=== PATIENT | male | born 1955 | race Hispanic/Latino ===

== ENCOUNTER 2017-05-09 15:00 | Inpatient (IN) | payer OTHER, MEDICARE ==
[~2017-05-09] VITALS: Ht 160 cm; Wt 134.4 kg
[2017-05-19] MEDS ORDERED: INSLAN SQ ×2 (16:42)
[2017-05-19] MEDS ORDERED: SITA100T12 PO (16:42)
[2017-05-19] MEDS ORDERED: GLYB-228 PO (16:42)
[2017-05-19] MEDS ORDERED: LEVO50TA11 PO (16:42)
[2017-05-19] MEDS ORDERED: MIRA50TA PO (16:42)
[2017-05-19] MEDS ORDERED: TAMS-1 PO (16:42)
[2017-05-19] MEDS ORDERED: AMLO-128 PO (16:42)
[2017-05-19 16:56] VITALS: BP 169/80
[2017-05-19 17:16] LABS: APPEARANCE,URINE Clear (CLEAR); BILIRUBIN,URINE Negative (NEGATIVE); COLOR,URINE Yellow (YELLOW); GLUCOSE, URINE (UA) 500 mg/dL (NEGATIVE); KETONES,URINE Negative (NEGATIVE); LEUKOCYTE ESTERASE ,URINE Negative (NEGATIVE); NITRATE,URINE Negative (NEGATIVE); OCCULT BLOOD,URINE Negative (NEGATIVE); PROTEIN,URINE POS 1+ (NEGATIVE)
[2017-05-19 17:22] LABS: INR 1.01 (0.85-1.15); PARTIAL THROMBOPLASTIN TIME 26.5 SEC (26.3-35.5); PROTHROMBIN TIME 10.6 SEC (9.6-11.6)
[2017-05-19 17:33] LABS: BACTERIA,URINE None Seen /HPF (None Seen); RBC,URINE None Seen /HPF (0-1); WBC,URINE None Seen /HPF (0-1)
[2017-05-22] VITALS (22 sets, daily range): BP systolic 120–163; BP diastolic 59–87
[2017-05-22] MEDS ORDERED: CEFAZOLIN 3GM /D5W 100ML 100 ML IV SCH ×2 (05:30→15:45)
[2017-05-22] MEDS ORDERED: GLYCOPYRROLATE 0.2 MG/ML 5 ML VIAL ONE ×2 (06:52→10:42)
[2017-05-22] MEDS ORDERED: LIDOCAINE PF 2% 5ML ABBOJECT ONE (06:52)
[2017-05-22] MEDS ORDERED: DEXAMETHASONE SOD PHOSPHATE 10MG/ML 1ML VIAL ONE ×2 (06:52→10:42)
[2017-05-22] MEDS ORDERED: MIDAZOLAM HCL 1 MG/ML 2ML VIAL ONE (06:53)
[2017-05-22] MEDS ORDERED: PROPOFOL 10 MG/ML 20ML VIAL IV ONE ×2 (06:53→08:33)
[2017-05-22] MEDS ORDERED: FENTANYL CITRATE PF 50 MCG/1 ML 2ML VIAL ONE ×3 (06:53→10:26)
[2017-05-22] MEDS ORDERED: SODIUM CHLORIDE 0.9% 1000ML 1,000 ML IV ONE (06:56)
[2017-05-22] MEDS ORDERED: TRANEXAMIC ACID 1000MG/10ML IV ONE ×2 (07:01→09:30)
[2017-05-22] MEDS ORDERED: CEFAZOLIN SODIUM 1 GM VIAL ONE (07:01)
[2017-05-22] MEDS ORDERED: ROPIVACAINE 0.5% 5MG/ML 30ML IJ ONE (07:02)
[2017-05-22 07:04] LABS: HEMATOCRIT 43.1 % (42-54); MEAN CORPUSCULAR HEMOGLOBIN 29.2 pg (27.0-33.0); MEAN CORPUSCULAR HGB CONC 34.1 g/dL (32.0-36.0); MEAN CORPUSCULAR VOLUME 85.4 fL (79-99); PLATELET COUNT (AUTO) 244 K/uL (130-400); RED BLOOD CELL COUNT(AUTO) 5.04 MIL/uL (4.50-6.20); RED CELL DISTRIBUTION WIDTH 14.2 % (11.0-15.5); WHITE BLOOD COUNT (AUTO) 6.4 K/uL (4.8-10.8)
[2017-05-22] MEDS ORDERED: BUPIVACAINE/EPI/PF 0.25% 30ML VIAL IJ ONE (07:11)
[2017-05-22 07:21] LABS: CREATININE 0.9 mg/dL (0.5-1.5); POTASSIUM 4.4 mmol/L (3.5-5.1)
[2017-05-22] MEDS: CEFAZOLIN SODIUM 1 GM VIAL ONE ×2 (07:29→09:07)
[2017-05-22] MEDS ORDERED: EPHEDRINE SULFATE 50 MG/ML AMPULE ONE (09:00)
[2017-05-22] MEDS ORDERED: ROCURONIUM BROMIDE 10MG/1ML 5ML VL ONE ×2 (09:07)
[2017-05-22] MEDS ORDERED: ONDANSETRON HCL MDV 20ML 2 MG/ML VIAL ONE (09:25)
[2017-05-22] MEDS ORDERED: SUCCINYLCHOLINE CHLORIDE 20 MG/ML 10 ML VIAL ONE (09:25)
[2017-05-22] MEDS ORDERED: NEOSTIGMINE METHYLSULFATE 1MG/ML IV ONE (10:42)
[2017-05-22] MEDS ORDERED: LIDOCAINE HCL 4% LTA SOL 4 ML VIAL ONE (10:42)
[2017-05-22] MEDS ORDERED: TRAMADOL HCL 50 MG TABLET PO PRN (10:45)
[2017-05-22] MEDS ORDERED: KETOROLAC TROMETHAMINE 15MG/ML IV PRN (10:45)
[2017-05-22] MEDS ORDERED: POTASSIUM CHLORIDE 10% ELIXIR 20 MEQ/15 ML UDCUP PO PRN (10:45)
[2017-05-22] MEDS ORDERED: CALCIUM CARBONATE 500 MG TABLET PO PRN (10:45)
[2017-05-22] MEDS ORDERED: POTASSIUM CHLORIDE 20MEQ/100ML 100 ML IV PRN (10:45)
[2017-05-22] MEDS ORDERED: LIDOCAINE HCL-MPF 1% 2ML VIAL IVP PRN (10:45)
[2017-05-22] MEDS: ACETAMINOPHEN 325 MG TAB PO SCH ×3 (10:45→23:02)
[2017-05-22] MEDS ORDERED: POTASSIUM CHLORIDE 20 MEQ ERTAB PO PRN (10:45)
[2017-05-22] MEDS ORDERED: TEMAZEPAM 15 MG CAPSULE PO PRN (10:45)
[2017-05-22] MEDS ORDERED: PROMETHAZINE HCL 25 MG/ML 1ML AMPULE IM PRN (10:45)
[2017-05-22] MEDS ORDERED: DIPHENHYDRAMINE HCL 25 MG CAPSULE PO PRN (10:45)
[2017-05-22] MEDS ORDERED: DiphenhydrAMINE HCL 50 MG/ML VIAL IVP PRN (10:45)
[2017-05-22] MEDS ORDERED: FERROUS FUMARATE 324 MG TABLET PO PRN (10:45)
[2017-05-22] MEDS ORDERED: MEPERIDINE-PF 25 MG/ML SYG ONE ×2 (11:14→11:28)
[2017-05-22] MEDS: INSULIN HUMULIN R 100 UNIT/ML 3ML SQ SCH ×3 (11:30→21:00)
[2017-05-22] MEDS: PSYLLIUM SEED 1 EACH PACKET PO SCH (12:00)
[2017-05-22] MEDS: SODIUM CHLORIDE 0.9% 1000ML 1,000 ML IV SCH ×2 (12:10→23:02)
[2017-05-22] MEDS: OXYCODONE HCL 5 MG TAB PO PRN ×2 (13:20→16:14)
[2017-05-22] MEDS: WATER FOR INJECTION,STERILE 20 ML VIAL IJ SCH ×2 (15:45→23:45)
[2017-05-22] MEDS ORDERED: CEFAZOLIN SODIUM 1 GM VIAL IVP SCH (15:45)
[2017-05-22] MEDS ORDERED: COMPOUND IV REFRIGERATED 1 EACH IVSOLN MISC PRN (16:30)
[2017-05-22] MEDS: CEFAZOLIN SODIUM 3 GM in SODIUM CHLORIDE 0.9% 100 ML IVP SCH ×2 (17:47→23:55)
[2017-05-22] MEDS: CELECOXIB 200 MG CAP PO SCH (20:18)
[2017-05-22] MEDS: PREGABALIN 25 MG CAP PO SCH (20:18)
[2017-05-22] MEDS: ASPIRIN 325 MG TABLET PO SCH (20:18)
[2017-05-22] MEDS: FAMOTIDINE 20MG TAB 20 MG TAB PO SCH (20:18)
[2017-05-22] MEDS: GLYBURIDE/METFORMIN HCL 5/500MG TABLET PO SCH (20:18)
[2017-05-22] MEDS ORDERED: INSULIN GLARGINE 100 UNITS/ML 10 ML VIAL SQ SCH (21:00)
[2017-05-23] VITALS: BP 142/78
[2017-05-23 04:00] VITALS: BP 125/59
[2017-05-23 05:29] LABS: HEMATOCRIT 36.8 % (42-54); MEAN CORPUSCULAR HEMOGLOBIN 29.6 pg (27.0-33.0); MEAN CORPUSCULAR HGB CONC 34.2 g/dL (32.0-36.0); MEAN CORPUSCULAR VOLUME 86.6 fL (79-99); PLATELET COUNT (AUTO) 238 K/uL (130-400); RED BLOOD CELL COUNT(AUTO) 4.25 MIL/uL (4.50-6.20); WHITE BLOOD COUNT (AUTO) 9.9 K/uL (4.8-10.8)
[2017-05-23 05:46] LABS: CREATININE 1.1 mg/dL (0.5-1.5); POTASSIUM 4.3 mmol/L (3.5-5.1)
[2017-05-23] MEDS: ACETAMINOPHEN 325 MG TAB PO SCH ×3 (05:50→17:11)
[2017-05-23] MEDS ORDERED: LEVOTHYROXINE 50 MCG TABLET PO SCH (06:30)
[2017-05-23] MEDS: INSULIN HUMULIN R 100 UNIT/ML 3ML SQ SCH ×3 (06:33→16:30)
[2017-05-23] MEDS: SODIUM CHLORIDE 0.9% 1000ML 1,000 ML IV SCH (06:44)
[2017-05-23] MEDS: WATER FOR INJECTION,STERILE 20 ML VIAL IJ SCH ×2 (07:45→15:45)
[2017-05-23 07:49] VITALS: BP 146/71
[2017-05-23] MEDS ORDERED: TAMSULOSIN HCL 0.4 MG CAP.ER.24H PO SCH ×2 (09:00)
[2017-05-23] MEDS ORDERED: **HM**Mirabegron (Myrbetriq) 50 MG PO SCH (09:00)
[2017-05-23] MEDS ORDERED: POLYETHYLENE GLYCOL 3350 17 GM POWD.PACK PO SCH (09:00)
[2017-05-23] MEDS ORDERED: AMLODIPINE BESYLATE 5 MG TAB PO SCH (09:00)
[2017-05-23] MEDS ORDERED: BENAZEPRIL HCL 10 MG TABLET PO SCH (09:00)
[2017-05-23] MEDS ORDERED: AMLODIPINE-BENAZEPRIL 5-20 MG PO SCH (09:00)
[2017-05-23] MEDS ORDERED: INSULIN GLARGINE 100 UNITS/ML 10 ML VIAL SQ SCH (09:00)
[2017-05-23] MEDS: CELECOXIB 200 MG CAP PO SCH (09:19)
[2017-05-23] MEDS: ASPIRIN 325 MG TABLET PO SCH (09:19)
[2017-05-23] MEDS: OXYCODONE HCL 5 MG TAB PO PRN ×3 (09:20→17:22)
[2017-05-23] MEDS: PREGABALIN 25 MG CAP PO SCH (09:20)
[2017-05-23] MEDS: FAMOTIDINE 20MG TAB 20 MG TAB PO SCH (09:20)
[2017-05-23] MEDS: GLYBURIDE/METFORMIN HCL 5/500MG TABLET PO SCH (09:22)
[2017-05-23 11:19] VITALS: BP 146/72
[2017-05-23] MEDS ORDERED: LINAGLIPTIN 5 MG TABLET PO SCH (12:00)
[2017-05-23] MEDS: PSYLLIUM SEED 1 EACH PACKET PO SCH (12:16)
[2017-05-23 16:00] VITALS: BP 157/67
[2017-05-23] MEDS ORDERED: HYDR-309 PO (18:12)
[2017-05-23] MEDS ORDERED: ASPI-1012 PO (18:12)
[2017-05-24] MEDS ORDERED: BISACODYL 5 MG TABLET.DR PO PRN (10:45)
[2017-05-25] MEDS ORDERED: BISACODYL 10 MG SUPP.RECT RC PRN (10:45)
[2017-08-08] MEDS ORDERED: SITA100T12 PO (16:41)
[2017-08-08] MEDS ORDERED: GLIM4TAB3 PO (16:41)
== END 2017-05-23 20:25 | DRG 470 ==
LOC: EDSTATUS 05-19 15:00 → DAHIP 05-22 05:40 → 4AH 05-22 12:05
PROVIDERS: ADMIT Orthopaedic Surgery; ATTEND Orthopaedic Surgery
PROC: 0SRC0J9 Replacement of Right Knee Joint with Synthetic Substitute, Cemented, Open Approach (ICD-10-PCS; principal; 2017-05-22 08:26)
DX: M17.11 Unilateral primary osteoarthritis, right knee (principal); E66.01 Morbid (severe) obesity due to excess calories; Z68.43 Body mass index [BMI] 50.0-59.9, adult; E11.9 Type 2 diabetes mellitus without complications; I10 Essential (primary) hypertension; G89.29 Other chronic pain; G47.33 Obstructive sleep apnea (adult) (pediatric); Z83.3 Family history of diabetes mellitus
CPT/HCPCS: 36415; 80048; 81001; 82948; 85027; 85610; 85730; 88305; 88311; A4218; C1713; J0330; J0690; J1100; J1815; J2001; J2175; J2250; J2704; J2710; J2795; J3010; J3490; J7030

== ENCOUNTER 2017-08-09 07:25 | Observation (INO) | payer OTHER, MEDICARE ==
[2017-08-08 16:13] LABS: INR 0.98 (0.85-1.15); PROTHROMBIN TIME 10.3 SEC (9.6-11.6)
[2017-08-08 16:32] VITALS: BP 162/76
[2017-08-08 16:58] LABS: APPEARANCE,URINE Clear (CLEAR); BILIRUBIN,URINE Small (NEGATIVE); COLOR,URINE Dark Yellow (YELLOW); GLUCOSE, URINE (UA) Negative (NEGATIVE); KETONES,URINE Trace mg/dL (NEGATIVE); LEUKOCYTE ESTERASE ,URINE Negative (NEGATIVE); NITRATE,URINE Negative (NEGATIVE); OCCULT BLOOD,URINE Negative (NEGATIVE); PROTEIN,URINE POS 1+ (NEGATIVE)
[2017-08-08 17:14] LABS: RBC,URINE 0-1 /HPF (0-1); WBC,URINE 0-1 /HPF (0-1)
[2017-08-08 17:15] LABS: BACTERIA,URINE Few /HPF (None Seen); MUCUS,URINE Few LPF (None Seen); SQUAMOUS EPITHELIAL CELL,UR Rare /HPF (0-2)
[~2017-08-09] VITALS: Ht 157.5 cm; Wt 126.0 kg
[2017-08-09] VITALS (23 sets, daily range): BP systolic 57–154; BP diastolic 40–71
[~2017-08-09 07:25] MED LIST: AMLO-128 PO; CEFAZOLIN 3GM /D5W 100ML 100 ML IV SCH; GLIM4TAB3 PO; INSLAN SQ; LEVO50TA11 PO; MIRA50TA PO; SITA100T12 PO; TAMS-1 PO
[2017-08-09] MEDS ORDERED: SODIUM CHLORIDE 0.9% 1000ML 1,000 ML IV ONE (08:16)
[2017-08-09] MEDS ORDERED: CEFAZOLIN SODIUM 1 GM VIAL ONE ×2 (08:16→08:35)
[2017-08-09] MEDS ORDERED: METF10004 PO (08:23)
[2017-08-09] MEDS ORDERED: EPINEPHRINE 1 MG/ML AMPULE ONE (08:35)
[2017-08-09] MEDS ORDERED: BUPIVACAINE/PF 0.25% 30ML VIAL IJ ONE (08:35)
[2017-08-09] MEDS ORDERED: OXYCODONE HCL 10 MG TAB.SR.12H PO ONE (08:48)
[2017-08-09] MEDS ORDERED: CELECOXIB 200 MG CAP ONE (08:48)
[2017-08-09] MEDS ORDERED: ACETAMINOPHEN EXTRA STRENGTH 500 MG TABLET ONE (08:48)
[2017-08-09] MEDS ORDERED: KETOROLAC TROMETHAMINE 15MG/ML ONE (08:48)
[2017-08-09] MEDS ORDERED: METOCLOPRAMIDE 10 MG/2 ML VIAL ONE (08:48)
[2017-08-09] MEDS ORDERED: DEXAMETHASONE SOD PHOSPHATE 10MG/ML 1ML VIAL ONE (09:29)
[2017-08-09] MEDS ORDERED: LIDOCAINE PF 2% 5ML ABBOJECT ONE (09:29)
[2017-08-09] MEDS ORDERED: GLYCOPYRROLATE 0.2 MG/ML 5 ML VIAL ONE (09:29)
[2017-08-09] MEDS ORDERED: FENTANYL CITRATE PF 50 MCG/1 ML 2ML VIAL ONE (09:29)
[2017-08-09] MEDS ORDERED: ONDANSETRON HCL 4 MG/2 ML VIAL ONE (09:29)
[2017-08-09] MEDS ORDERED: MIDAZOLAM HCL 1 MG/ML 2ML VIAL ONE (09:29)
[2017-08-09] MEDS ORDERED: PROPOFOL 10 MG/ML 20ML VIAL IV ONE (09:29)
[2017-08-09] MEDS ORDERED: ROPIVACAINE 0.5% 5MG/ML 30ML IJ ONE (09:30)
[2017-08-09] MEDS: TRANEXAMIC ACID 1000MG/10ML IV ONE ×2 (10:10→12:27)
[2017-08-09] MEDS: SODIUM CHLORIDE 0.9% 1000ML 1,000 ML IV SCH ×3 (11:47→22:19)
[2017-08-09] MEDS ORDERED: POTASSIUM CHLORIDE 20 MEQ ERTAB PO PRN (12:00)
[2017-08-09] MEDS ORDERED: OXYCODONE HCL 5 MG TAB PO PRN (12:00)
[2017-08-09] MEDS ORDERED: FERROUS FUMARATE 324 MG TABLET PO PRN (12:00)
[2017-08-09] MEDS ORDERED: LIDOCAINE HCL-MPF 1% 2ML VIAL IVP PRN (12:00)
[2017-08-09] MEDS ORDERED: TEMAZEPAM 15 MG CAPSULE PO PRN (12:00)
[2017-08-09] MEDS ORDERED: CALCIUM CARBONATE 500 MG TABLET PO PRN (12:00)
[2017-08-09] MEDS ORDERED: POTASSIUM CHLORIDE 10% ELIXIR 20 MEQ/15 ML UDCUP PO PRN (12:00)
[2017-08-09] MEDS ORDERED: DiphenhydrAMINE HCL 50 MG/ML VIAL IVP PRN (12:00)
[2017-08-09] MEDS: ACETAMINOPHEN EXTRA STRENGTH 500 MG TABLET PO SCH ×2 (12:00→20:02)
[2017-08-09] MEDS ORDERED: TRAMADOL HCL 50 MG TABLET PO PRN (12:00)
[2017-08-09] MEDS ORDERED: ONDANSETRON HCL 4 MG/2 ML VIAL IVP PRN (12:00)
[2017-08-09] MEDS ORDERED: POTASSIUM CHLORIDE 20MEQ/100ML 100 ML IV PRN (12:00)
[2017-08-09] MEDS ORDERED: EPHEDRINE SULFATE 50 MG/ML AMPULE ONE (12:42)
[2017-08-09] MEDS ORDERED: MEPERIDINE-PF 25 MG/ML SYG ONE (12:48)
[2017-08-09] MEDS: CEFAZOLIN 3GM /D5W 100ML 100 ML IV SCH (18:28)
[2017-08-09] MEDS: METFORMIN HCL 500 MG TABLET PO SCH (18:29)
[2017-08-09] MEDS: INSULIN HUMULIN R 100 UNIT/ML 3ML SQ SCH ×2 (18:55→21:06)
[2017-08-09] MEDS: CELECOXIB 200 MG CAP PO SCH (20:02)
[2017-08-09] MEDS: PREGABALIN 25 MG CAP PO SCH (20:02)
[2017-08-09] MEDS: ASPIRIN 325 MG TABLET PO SCH (20:02)
[2017-08-09] MEDS: FAMOTIDINE 20MG TAB 20 MG TAB PO SCH (20:02)
[2017-08-09] MEDS: KETOROLAC TROMETHAMINE 15MG/ML IV PRN (20:05)
[2017-08-09] MEDS ORDERED: INSULIN GLARGINE 100 UNITS/ML 10 ML VIAL SQ SCH (21:00)
[2017-08-09] MEDS: OXYCODONE HCL 5 MG TAB PO PRN (22:19)
[2017-08-10] VITALS: BP 115/53
[2017-08-10] MEDS: CEFAZOLIN 3GM /D5W 100ML 100 ML IV SCH (00:37)
[2017-08-10] MEDS ORDERED: LEVOTHYROXINE 50 MCG TABLET ONE (03:52)
[2017-08-10] MEDS: ACETAMINOPHEN EXTRA STRENGTH 500 MG TABLET PO SCH ×2 (03:54→12:59)
[2017-08-10 04:00] VITALS: BP 132/62
[2017-08-10] MEDS: OXYCODONE HCL 5 MG TAB PO PRN (06:05)
[2017-08-10] MEDS: INSULIN HUMULIN R 100 UNIT/ML 3ML SQ SCH ×3 (06:07→16:30)
[2017-08-10 06:13] LABS: HEMATOCRIT 36.4 % (42-54); MEAN CORPUSCULAR HGB CONC 33.3 g/dL (32.0-36.0); MEAN CORPUSCULAR VOLUME 87.2 fL (79-99); PLATELET COUNT (AUTO) 240 K/uL (130-400); RED BLOOD CELL COUNT(AUTO) 4.18 MIL/uL (4.50-6.20); RED CELL DISTRIBUTION WIDTH 14.2 % (11.0-15.5); WHITE BLOOD COUNT (AUTO) 8.7 K/uL (4.8-10.8)
[2017-08-10] MEDS ORDERED: LEVOTHYROXINE 50 MCG TABLET PO SCH (06:30)
[2017-08-10] MEDS: SODIUM CHLORIDE 0.9% 1000ML 1,000 ML IV SCH (07:47)
[2017-08-10] MEDS: METFORMIN HCL 500 MG TABLET PO SCH ×2 (08:00→17:22)
[2017-08-10 08:03] VITALS: BP 161/75
[2017-08-10] MEDS: ASPIRIN 325 MG TABLET PO SCH (08:40)
[2017-08-10] MEDS: CELECOXIB 200 MG CAP PO SCH (08:40)
[2017-08-10] MEDS: FAMOTIDINE 20MG TAB 20 MG TAB PO SCH (08:41)
[2017-08-10] MEDS: PREGABALIN 25 MG CAP PO SCH (08:41)
[2017-08-10] MEDS: KETOROLAC TROMETHAMINE 15MG/ML IV PRN ×2 (08:42→17:24)
[2017-08-10] MEDS ORDERED: GLIMEPIRIDE 2 MG TABLET PO SCH (09:00)
[2017-08-10] MEDS ORDERED: ***HM**(Mirabegron (Myrbetriq) 50 MG) PO SCH (09:00)
[2017-08-10] MEDS ORDERED: TAMSULOSIN HCL 0.4 MG CAP.ER.24H PO SCH ×2 (09:00)
[2017-08-10] MEDS ORDERED: INSULIN GLARGINE 100 UNITS/ML 10 ML VIAL SQ SCH (09:00)
[2017-08-10] MEDS ORDERED: POLYETHYLENE GLYCOL 3350 17 GM POWD.PACK PO SCH (09:00)
[2017-08-10] MEDS ORDERED: AMLODIPINE-BENAZEPRIL 5-20 MG PO SCH (09:00)
[2017-08-10 11:18] VITALS: BP 128/60
[2017-08-10] MEDS ORDERED: LINAGLIPTIN 5 MG TABLET PO SCH (12:00)
[2017-08-10 16:18] VITALS: BP 181/81
[2017-08-10] MEDS ORDERED: HYDR-309 PO (17:57)
[2017-08-10] MEDS ORDERED: ASPI-1012 PO (17:57)
[2017-08-10 20:04] VITALS: BP 146/73
[2017-08-12] MEDS ORDERED: BISACODYL 10 MG SUPP.RECT RC PRN (12:00)
== END 2017-08-10 21:55 ==
LOC: DAH 07:25 → DAHIP 07:26 → DAH 07:26 → 4AH 13:53 → EDSTATUS 15:00
PROVIDERS: ADMIT Orthopaedic Surgery; ATTEND Orthopaedic Surgery
DX: M17.12 Unilateral primary osteoarthritis, left knee (principal); I10 Essential (primary) hypertension; E66.01 Morbid (severe) obesity due to excess calories; E78.5 Hyperlipidemia, unspecified; E11.9 Type 2 diabetes mellitus without complications; R53.82 Chronic fatigue, unspecified; N40.0 Benign prostatic hyperplasia without lower urinary tract symptoms; Z83.3 Family history of diabetes mellitus; Z82.49 Family history of ischemic heart disease and other diseases of the circulatory system; G47.33 Obstructive sleep apnea (adult) (pediatric); Z79.899 Other long term (current) drug therapy; Z96.652 Presence of left artificial knee joint; Z68.43 Body mass index [BMI] 50.0-59.9, adult; Z79.4 Long term (current) use of insulin
CPT/HCPCS: 27447; 36415 ×2; 80048; 81001; 82948 ×10; 85027; 85610; 85730; 88305; 88311; 96365; 96372; 96375 ×2; 96376; 97116 ×3; 97161; 97530 ×2; A4218; A4649 ×5; A4930 ×2; A9272; C1763; C1776; G0378 ×38; G8978; G8979; G8980; G8981; G8982; G8983; J0171; J0690 ×3; J1100; J1815 ×2; J1885 ×4; J2001; J2175; J2250; J2405; J2704; J2765; J2795; J3010; J3490 ×4; J7030 ×2; 96374

== ENCOUNTER 2022-07-29 07:10 | Day surgery (SDC) | payer MEDICARE, OTHER ==
[2022-07-27 12:37] LABS: BASOPHILS % (AUTO) 0.6 % (0.0-5.0); EOSINOPHILS % (AUTO) 2.6 % (0.0-8.0); HEMATOCRIT 46.2 % (42-54); LYMPHOCYTES % (AUTO) 28.8 % (21.0-51.0); MEAN CORPUSCULAR HGB CONC 32.9 g/dL (32.0-36.0); MEAN CORPUSCULAR VOLUME 88.2 fL (79-99); MONOCYTES % (AUTO) 9.5 % (3.0-13.0); NEUTROPHILS % (AUTO) 58.1 % (40.0-77.0); PLATELET COUNT (AUTO) 191 K/uL (130-400); RED BLOOD CELL COUNT(AUTO) 5.24 MIL/uL (4.50-6.20); RED CELL DISTRIBUTION WIDTH 13.4 % (11.0-15.5)
[2022-07-27 12:44] VITALS: BP 151/63
[2022-07-27 12:55] LABS: CREATININE 0.9 mg/dL (0.5-1.5); POTASSIUM 4.3 mmol/L (3.5-5.1)
[~2022-07-29] VITALS: Ht 162.6 cm; Wt 123.7 kg
[2022-07-29] VITALS (23 sets, daily range): BP systolic 98–135; BP diastolic 43–69
[~2022-07-29 07:10] MED LIST changes: -AMLO-128 PO; +AMLO-142 PO; -CEFAZOLIN 3GM /D5W 100ML 100 ML IV SCH; +EMPA25TA PO; -GLIM4TAB3 PO; +GLIP1TAB6 PO; -INSLAN SQ; +INSU200I4 SQ; -MIRA50TA PO; +SIMV5TAB58 PO; -SITA100T12 PO
[2022-07-29] MEDS ORDERED: CEFAZOLIN SODIUM 2 GM VIAL ONE (07:37)
[2022-07-29] MEDS ORDERED: 0.9%NACL 1000ML 1,000 ML IV ONE (07:37)
[2022-07-29] MEDS ORDERED: FAMOTIDINE 20MG VIAL IV ONE (10:27)
[2022-07-29] MEDS ORDERED: LIDOCAINE PF 100MG/5ML (2%) SYRINGE 5ML ONE (10:32)
[2022-07-29] MEDS ORDERED: SUCCINYLCHOLINE CHLORIDE 20 MG/ML 10 ML VIAL ONE (10:32)
[2022-07-29] MEDS ORDERED: FENTANYL CITRATE PF 50 MCG/1 ML 2ML VIAL ONE (10:33)
[2022-07-29] MEDS ORDERED: GLYCOPYRROLATE 1 MG/5 ML SYRINGE ONE ×2 (10:33→11:45)
[2022-07-29] MEDS ORDERED: PROPOFOL 10 MG/ML 20ML VIAL IV ONE (10:33)
[2022-07-29] MEDS ORDERED: ROCURONIUM 10MG/1ML SYR 10 MG/ML ML ONE (10:33)
[2022-07-29] MEDS ORDERED: CEFAZOLIN SODIUM 2 GM VIAL IVPB ONE (10:45)
[2022-07-29] MEDS ORDERED: ONDANSETRON 4MG INJ ONE (11:07)
[2022-07-29] MEDS ORDERED: NEOSTIGMINE 5MG/5ML SYR IV ONE (11:07)
[2022-07-29] MEDS ORDERED: BACITRACIN 28.4 GM OINT TP ONE (11:25)
== END 2022-07-29 16:20 | disposition home or self-care (01) ==
LOC: DAH 07:10
PROVIDERS: ATTEND Urology
DX: N47.1 Phimosis (principal); Z20.822 Contact with and (suspected) exposure to COVID-19; I10 Essential (primary) hypertension; E78.5 Hyperlipidemia, unspecified; E66.01 Morbid (severe) obesity due to excess calories; G47.33 Obstructive sleep apnea (adult) (pediatric); E11.9 Type 2 diabetes mellitus without complications; E03.9 Hypothyroidism, unspecified; I45.2 Bifascicular block; Z80.3 Family history of malignant neoplasm of breast; Z79.84 Long term (current) use of oral hypoglycemic drugs; Z79.899 Other long term (current) drug therapy; Z79.890 Hormone replacement therapy; Z68.42 Body mass index [BMI] 45.0-49.9, adult
CPT/HCPCS: 80048; 85025; 87426; 36415; 93005; 54161; 82948 ×2; A6260; A4663; J3490 ×3; J3010; J2710; J0330; J7030; J2001; J2704; J2405; J0690 ×2; A4215; A4223; A4222; A4221; A4600; A4510